=== PATIENT | male | born 1985 | race Caucasian/White ===

== ENCOUNTER 2018-04-12 13:43 | Emergency (ER) | payer OTHER ==
[~2018-04-12] VITALS: Ht 177.8 cm; Wt 84.1 kg
[2018-04-12 13:47] VITALS: BP 141/99
[2018-04-12] MEDS ORDERED: LIDOCAINE 1% MDV 20ML VIAL IM ONE (15:30)
--- NOTE | 2018-04-12 15:32 | REP ---
Left thumb series: Four views. History: Laceration. Findings: Four views of the left thumb demonstrate a flexion deformity at the IP joint of the thumb. No opaque foreign body or fracture is seen. Impression: Flexion deformity at the DIP joint of the thumb. Question extensor tendon injury. No fracture seen. No opaque foreign body noted. Electronically Signed by Timoteo Sanders MD 04/12/2018 06:56 P
[2018-04-12] MEDS ORDERED: cefTRIAXone SOD 1 GM VIAL (J0696) IM ONE (15:45)
[2018-04-12] MEDS ORDERED: LIDOCAINE 1% SDV 5 ML VIAL DILUENT ONE (15:45)
[2018-04-12] MEDS ORDERED: KEFL500C17 PO (15:55)
== END 2018-04-12 16:16 | disposition home or self-care (01) ==
LOC: M ED 13:43
DX: S61.012A Laceration without foreign body of left thumb without damage to nail, initial encounter (principal); W26.0XXA Contact with knife, initial encounter; Y92.018 Other place in single-family (private) house as the place of occurrence of the external cause
CPT/HCPCS: 12031; 73140; 96372; 99284; J0696

== ENCOUNTER 2018-12-13 11:52 | Emergency (ER) | payer OTHER ==
[~2018-12-13 11:52] MED LIST: FOLIC ACID 1 MG TAB PO SCH; KEFL500C17 PO; MULTIVITAMINS/MINERALS THERAP 1 TAB PO SCH
[2018-12-13 12:34] LABS: HEMATOCRIT 47.7 % (42.0-52.0); HEMOGLOBIN 17.6 g/dl (13.5-17.5); MEAN CORPUSCULAR HEMOGLOBIN 31.4 pg (27.0-33.0); MEAN CORPUSCULAR VOLUME 85.2 fl (80.0-96.0); PLATELET COUNT, AUTOMATED 290 10^3/uL (150-450); WHITE BLOOD COUNT 7.9 10^3/uL (4.0-10.0)
[2018-12-13 12:39] LABS: MEAN CORPUSCULAR HGB CONC 36.5 g/dl (32.0-36.5)
[2018-12-13 13:11] LABS: ACETAMINOPHEN LEVEL < 2.0 UG/ML (10.0-30.0); ALBUMIN 4.5 GM/DL (3.2-5.2); ALT/SGPT 108 U/L (12-78); BILIRUBIN,DIRECT 0.3 MG/DL (0.0-0.2); BILIRUBIN,TOTAL 1.5 MG/DL (0.2-1.0); BLOOD UREA NITROGEN 13 MG/DL (7-18); CALCIUM LEVEL 9.3 MG/DL (8.5-10.1); CARBON DIOXIDE LEVEL 24 MEQ/L (21-32); CHLORIDE LEVEL 109 MEQ/L (98-107); CREATININE FOR GFR 1.08 MG/DL (0.70-1.30); ETHYL ALCOHOL (ETHANOL) 0.227 % (0.000-0.010); GLOMERULAR FILTRATION RATE > 60.0 (>60); GLUCOSE, FASTING 97 MG/DL (70-100); POTASSIUM SERUM 4.2 MEQ/L (3.5-5.1); SALICYLATE LEVEL < 1.7 MG/DL (5.0-30.0); SODIUM LEVEL 143 MEQ/L (136-145); THYROID STIMULATING HORMONE 0.757 uIU/ML (0.358-3.740); TOTAL PROTEIN 8.1 GM/DL (6.4-8.2)
[2018-12-13 13:19] LABS: AMPHETAMINES LEVEL URINE NEGATIVE (NEGATIVE); BARBITURATES URINE NEGATIVE (NEGATIVE); BENZODIAZEPINES URINE NEGATIVE (NEGATIVE); CANNABINOIDS URINE NEGATIVE (NEGATIVE); COCAINE METABOLITE URINE NEGATIVE (NEGATIVE); METHADONE URINE NEGATIVE (NEGATIVE); OPIATES URINE NEGATIVE (NEGATIVE); PHENCYCLIDINE URINE NEGATIVE (NEGATIVE)
[2018-12-13] MEDS ORDERED: OXAZEPAM 15 MG CAP PO ONE (19:15)
[2018-12-13] MEDS ORDERED: LORazepam 2 MG TAB PO PRN (19:15)
[2018-12-13] MEDS ORDERED: THIAMINE 100 MG TAB PO SCH (21:00)
[2018-12-13 23:53] VITALS: BP 146/87
--- NOTE | 2018-12-14 05:57 | ECGEPIP ---
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
== END 2018-12-13 23:55 ==
LOC: M ED 11:52 → EDSEX 11:52 → EDBD 11:52 → M ED 23:55
DX: R45.851 Suicidal ideations (principal); F32.9 Major depressive disorder, single episode, unspecified; F10.10 Alcohol abuse, uncomplicated
CPT/HCPCS: 80048; 80076; 80307; 84443; 85027; 93005; 99285; G0480

== ENCOUNTER 2019-03-03 00:12 | Inpatient (IN) | payer OTHER ==
[~2019-03-03] VITALS: Ht 177.8 cm; Wt 78.1 kg
[~2019-03-03 00:12] MED LIST changes: -FOLIC ACID 1 MG TAB PO SCH; -MULTIVITAMINS/MINERALS THERAP 1 TAB PO SCH
[2019-03-03 00:23] LABS: HEMATOCRIT 48.6 % (42.0-52.0); MEAN CORPUSCULAR VOLUME 88.5 fl (80.0-96.0); PLATELET COUNT, AUTOMATED 318 10^3/uL (150-450); RED BLOOD COUNT 5.49 10^6/uL (4.30-6.10); WHITE BLOOD COUNT 11.5 10^3/uL (4.0-10.0)
[2019-03-03 00:57] LABS: AMPHETAMINES LEVEL URINE NEGATIVE (NEGATIVE); BARBITURATES URINE NEGATIVE (NEGATIVE); BENZODIAZEPINES URINE NEGATIVE (NEGATIVE); CANNABINOIDS URINE NEGATIVE (NEGATIVE); COCAINE METABOLITE URINE NEGATIVE (NEGATIVE); METHADONE URINE NEGATIVE (NEGATIVE); OPIATES URINE NEGATIVE (NEGATIVE); PHENCYCLIDINE URINE NEGATIVE (NEGATIVE)
[2019-03-03 01:00] LABS: ACETAMINOPHEN LEVEL < 2.0 UG/ML (10.0-30.0); ALT/SGPT 43 U/L (12-78); BILIRUBIN,DIRECT 0.1 MG/DL (0.0-0.2); BILIRUBIN,TOTAL 0.6 MG/DL (0.2-1.0); BLOOD UREA NITROGEN 10 MG/DL (7-18); CALCIUM LEVEL 8.7 MG/DL (8.5-10.1); CARBON DIOXIDE LEVEL 30 MEQ/L (21-32); CHLORIDE LEVEL 108 MEQ/L (98-107); CREATININE FOR GFR 0.93 MG/DL (0.70-1.30); ETHYL ALCOHOL (ETHANOL) 0.291 % (0.000-0.010); GLOMERULAR FILTRATION RATE > 60.0 (>60); GLUCOSE, FASTING 122 MG/DL (70-100); POTASSIUM SERUM 4.2 MEQ/L (3.5-5.1); SALICYLATE LEVEL < 1.7 MG/DL (5.0-30.0); SODIUM LEVEL 145 MEQ/L (136-145); THYROID STIMULATING HORMONE 0.863 uIU/ML (0.358-3.740); TOTAL PROTEIN 7.9 GM/DL (6.4-8.2)
[2019-03-03] MEDS ORDERED: METAL LOCK LOOP XX ONE (01:48)
[2019-03-03] MEDS ORDERED: traZODone 50 MG TAB PO PRN (12:30)
[2019-03-03] MEDS ORDERED: MOM 30ML SUSPENSION UDC PO PRN (12:30)
[2019-03-03] MEDS ORDERED: MAALOX 30 ML SUSP *UDC PO PRN (12:30)
[2019-03-03] MEDS ORDERED: ACETAMINOPHEN TAB 650MG DOSE (2X325MG) PO PRN (12:30)
[2019-03-03] MEDS ORDERED: cymbalta PO (15:22)
[2019-03-03 16:02] VITALS: BP 149/89
[2019-03-03] MEDS: NICOTINE 21MG/24HR 1 EA TRANSDERMAL TD SCH (17:30)
[2019-03-04 06:24] VITALS: BP 148/92
[2019-03-04] MEDS: NICOTINE 21MG/24HR 1 EA TRANSDERMAL TD SCH (09:00)
--- NOTE | 2019-03-04 12:01 | MHHPEPDOC ---
General Date Of Admission: Mar 03, 2019 Legal Status: 9.39 Chief Complaint "I've been depressed since my moved out with our kids." History of Present Illness HISTORY OF THE PRESENT ILLNESS: Patient is a 33 -year-old , AD, male, with a history of depression and alcohol use d/o who was brought to ED by RENNY'gianna on a 9.41 after he had been found in his bathtub with a bottle of gin and a razor blade, apparently voicing SI. When in the ED pt was intoxicated and after he sobered up in the Ed he stated he was depressed due to marital problems and had been drinking to self medicate which caused him to have SI. Per MP's pt's has moved out of their home with their kids. Psychiatric Review of Systems Depression (2 or more weeks): depressed mood, feelings of worthlesness (shame), difficulty concentrating, suicidal thoughts Ammy (4 or more days of): denies Psychosis: denies PTSD: denies Anxiety: situational anxiety, stressor related anxiety Anxiety/ 6 months or more of: difficulty concentrating, sleep disturbance Past Psychiatric History Previous Psychiatric Diagnosis: Depression, Alcohol use d/o Previous Psychiatric Admissions: [facility] for SI 12/13/18 Suicide Attempts: denies Psychiatric Follow-up: [facility] Psychiatric medications: cymbalta Past Medical History Medical Problems denies Head Injury: No Seizures: No Hospitalizations: Yes Surgeries: Yes (foot surgery) Family Medical/Psychiatric HX Medical Problems noncontributory Psychiatric Disorders: No Addiction: No Suicide Attemps/Completions: No Addiction History alcohol (binge drank night of admission after having been sober since 12/2018, bal 0.291) Social History Childhood: born and raised 2 parent home with siblings, good childhood Abuse/Trauma:denies Current Living Situation: lives alone after moved out with their kids 2wks ago on [facility] Education: high school grad Employment: [employer] Social Support: , family Legal: denies Marital: from , 2 kids Mental Status Examination General Appearance: unkempt, appears stated age, hospital scubs/clothing Build: average Demeanor: average Eye Contact: average Activity: average Behavior: cooperative Speech: clear, spontaneous, reg/rate,rhythm,volume Mood: depressed, anxious Mood "depressed and ashamed" Affect: constricted, congruent, anxious Thought Process: logical/linear, depressed, intact, other (thoughts of being ashamed over past actions, regret) Thought Content (Delusions): none reported, denies SI, HI, AVH Thought Content (Other): none reported, appropriate Thought Content (Aggressive): none reported Perception (Hallucinations): none reported Perception (Other): none reported Cognition (Impairment of): none reported Cognition(Intelligence Est.): average Oriented: Awake, Alert, Oriented times three Insight: fair Judgment: Fair Psychosis: Denies Diagnoses Depression unspecified R/O adjustment d/o with depressed mood r/o substance induced depression secondary alcohol alcohol use d/o A-FIB/CHADSVASC A-FIB History Current/History of A-Fib/PAF?: No Assessment Pt seen and states he's here for SI that first started in December 2018 with admission [facility] 12/13/18 and was started on cymbalta and had been doing well until after Thanksgiving when it came back. States his SI is due to his leaving him as they have been for a while but she just moved out with their kids 2wks ago which he admits hurts. States that his drinking and depression led to their separation and that he doesn't think if he gets better things will improve with them b/c his told him she wouldn't and "she's a person of her word." States he had been sober since December and started drinking 3 days ago when he and his and kids were spending Thanksgiving when he went thru her phone and found out she wasn't saying very nice things about him to her friends and was talking to other men which was hard for him to deal. States drank in binge pattern for 1 night prior to admission. States his showed up at when his beet end supervisor and warrant officer from his section there as his had been talking to pt on the phone and she requested they go and check on him. States he feels ashamed of what he did and has drink. States he does not find cymbalta very beneficial to his mood. Discussed medications with him and agreeable to starting prozac for depression, med risks/benefits discussed. Denies current SI/HI, hallucinations, delusions. Feels safe here. Initial Treatment Plan 1. Patient was admitted on a 9.39 status. 2. Complete history was obtained. 3. With patients permission, family will be contacted and database will be expanded. 4. Patients medication regimen will be reviewed and changed accordingly. 5. Patient will be provided with protected environment. 6. Patient will be treated with individual, group, and milieu therapies. 7. Patient will receive supportive psych-education. 8. Discharge planning will commence immediately. 9. Outpatient follow-up treatment will be strongly recommended. 10. The initial treatment plan will focus initially on: * Depression. * Risk for suicide. 11. d/c cymbalta, start prozac 20mg daily, trazodone 50mg qhs prn insomnia ESTIMATED LENGTH OF STAY: 5-7 DAYS. TIME SPENT COUNSELING AND COORDINATING INITIAL CARE: 60 minutes. Vital Signs Vital Signs Date Time Temp Pulse Resp B/P (MAP) Pulse Ox O2 Delivery O2 Flow Rate FiO2 03/04/19 08:19 Room Air 03/04/19 06:24 98.2 54 14 148/92 (110) 03/03/19 16:45 97 Medications Scheduled [cymbalta] , PO DAILY for depression, (Reported) Allergies Coded Allergies: No Known Allergies (Unverified , 12/13/18) GRACY HOWARD DO Mar 04, 2019 12:01
[2019-03-04] MEDS ORDERED: FLUoxetine 20 MG CAP PO ONE (13:00)
[2019-03-04 17:09] VITALS: BP 149/88
--- NOTE | 2019-03-04 19:31 | CR.PDOC ---
General Date of Consultation: Mar 04, 2019 Consultation REASON FOR CONSULTATION/CHIEF COMPLAINT: REASON FOR CONSULTATION/CHIEF COMPLAINT: Physical examination HISTORY OF PRESENT ILLNESS: Patient is 33 years old male with past medical history of depression, who was admitted in the hospital after he developed suici zaki ideation. He denies fever, chills, nausea, vomiting, shortness of breath, palpitations, diarrhea or dysuria ALLERGIES: Please see below. HOME MEDICATIONS: Please see below. PAST MEDICAL HISTORY: Depression PAST SURGICAL HISTORY: None FAMILY HISTORY: Father: Healthy Mother: Healthy SOCIAL HISTORY: Marital status and/or living arrangements: Single Tobacco use: Denied ETOH: Socially Illicit drug use: Denied IV drug use: Denied PHYSICAL EXAMINATION: VITAL SIGNS: Please see below. GENERAL APPEARANCE: NAD HEENT: PERRLA, EOMI RESPIRATORY: CTA CARDIOVASCULAR: S1-S2 ABDOMEN: Nontender nondistended EXTREMITIES: No swelling NEUROLOGICAL: Cranial nerves from 2-12 intact LABORATORY DATA: Please see below. ASSESSMENT/PLAN: Patient does not have any acute diseases besides of his mental illness. Will follow patient per request Vital Signs/I&O Vital Signs Date Time Temp Pulse Resp B/P (MAP) Pulse Ox O2 Delivery O2 Flow Rate FiO2 03/04/19 17:09 97.7 58 16 149/88 (108) 03/04/19 08:19 Room Air 03/03/19 16:45 97 Allergies Coded Allergies: No Known Allergies (Unverified , 12/13/18) Home Medications Scheduled [cymbalta] , PO DAILY for depression, (Reported) PABLITO PORTER DO Mar 04, 2019 19:31
[2019-03-05 06:07] VITALS: BP 122/70
[2019-03-05] MEDS: NICOTINE 21MG/24HR 1 EA TRANSDERMAL TD SCH (08:16)
[2019-03-05] MEDS: FLUoxetine 20 MG CAP PO SCH (08:17)
--- NOTE | 2019-03-05 09:45 | MHIPNPDOC ---
[facility] Progress Note Progress Note DATE OF SERVICE: 03/05/19 HISTORY: Patient is a 33 -year-old , AD, male, with a history of depression and alcohol use d/o who was brought to ED by RENNY'gianna on a 9.41 after he had been found in his bathtub with a bottle of gin and a razor blade, apparently voicing SI. When in the ED pt was intoxicated and after he sobered up in the Ed he stated he was depressed due to marital problems and had been drinking to self medicate which caused him to have SI. Per MP's pt's has moved out of their home with their kids. Pt seen and states he's here for SI that first started in December 2018 with admission [facility] 12/13/18 and was started on cymbalta and had been doing well until after Thanksgiving when it came back. States his SI is due to his leaving him as they have been for a while but she just moved out with their kids 2wks ago which he admits hurts. States that his drinking and depression led to their separation and that he doesn't think if he gets better things will improve with them b/c his told him she wouldn't and "she's a person of her word." States he had been sober since December and started drinking 3 days ago when he and his and kids were spending Thanksgiving when he went thru her phone and found out she wasn't saying very nice things about him to her friends and was talking to other men which was hard for him to deal. States drank in binge pattern for 1 night prior to admission. States his showed up at when his hardboard supervisor and warrant officer from his section there as his had been talking to pt on the phone and she requested they go and check on him. States he feels ashamed of what he did and has drink. States he does not find cymbalta very beneficial to his mood. Discussed medications with him and agreeable to starting prozac for depression, med risks/benefits discussed. Denies current SI/HI, hallucinations, delusions. Feels safe here. VITAL SIGNS: See below. NEW TEST RESULTS: See below. CURRENT MEDICATIONS: See below. MENTAL STATUS EXAMINATION: General Appearance: unkempt, appears stated age, hospital scrubs/clothing Build: average Demeanor: average Eye Contact: average Activity: average Behavior: cooperative Speech: clear, spontaneous, reg/rate,rhythm,volume Mood: depressed, anxious Mood "doing ok" Affect: less constricted, congruent, anxious Thought Process: logical/linear, less depressed, intact, improving (thoughts of being ashamed over past actions, regret) Thought Content (Delusions): none reported, denies SI, HI, AVH Thought Content (Other): none reported, appropriate Thought Content (Aggressive): none reported Perception (Hallucinations): none reported Perception (Other): none reported Cognition (Impairment of): none reported Cognition(Intelligence Est.): average Oriented: Awake, Alert, Oriented times three Insight: fair Judgment: Fair Psychosis: Denies DIAGNOSES: Depression unspecified R/O adjustment d/o with depressed mood r/o substance induced depression secondary alcohol alcohol use d/o ASSESSMENT:Pt seen and states that his mood is "ok". States he's starting to co me to terms with his guilt and shame over his previous actions, alcohol use. States he slept well last night. Feels he is tolerating his medications and they're beneficial. He is attending groups and finding them helpful, learning coping mechanisms. Per treatment team pt had a 'do not drink alcohol' order with his [employer] and is not in jeopardy of being in trouble with his command as he was found intoxicated with a bottle of gin. Will await [employer] decision regarding 'do not drink alcohol' order. He denies SI/HI, hallucinations, delusions. Pt feels safe here. MANAGEMENT PLAN: continue plan prozac 20mg daily trazodone 50mg qhs prn insomnia TIME SPENT: 30 minutes. Vital Signs Vital Signs Date Time Temp Pulse Resp B/P (MAP) Pulse Ox O2 Delivery O2 Flow Rate FiO2 03/05/19 06:07 98.4 77 16 122/70 (87) Room Air 03/03/19 16:45 97 Current Medications Current Medications Medications (Trade) Dose Ordered Sig/Chary Route PRN Reason Start Time Stop Time Status Last Admin Dose Admin Acetaminophen (Tylenol Tab) 650 mg Q6HP PRN PO HEADACHE or DISCOMFORT 03/03/19 12:30 Al Hydrox/Mg Hydrox/Simethicone (Mylanta) 30 ml Q4HP PRN PO HEARTBURN/INDIGESTION 03/03/19 12:30 Fluoxetine HCl (PROzac) 20 mg DAILY PO 03/05/19 09:00 03/05/19 08:17 Home Med (Med Rec Complete!) ASDIRECTED XX 03/03/19 11:45 03/03/19 11:36 DC Magnesium Hydroxide (Milk Of Magnesia) 30 ml DAILYPRN PRN PO CONSTIPATION 03/03/19 12:30 Nicotine (Nicoderm Cq 21mg) 1 patch DAILY TD 03/03/19 09:00 Trazodone HCl (Desyrel) 50 mg QHSP PRN PO INSOMNIA 03/03/19 12:30 03/04/19 20:54 Allergies Coded Allergies: No Known Allergies (Unverified , 12/13/18) GRACY HOWARD DO Mar 05, 2019 9:15 am
[2019-03-05 18:16] VITALS: BP 163/80
[2019-03-05 18:40] VITALS: BP 130/89
[2019-03-06 06:13] VITALS: BP 140/98
[2019-03-06] MEDS: FLUoxetine 20 MG CAP PO SCH (08:25)
[2019-03-06] MEDS: NICOTINE 21MG/24HR 1 EA TRANSDERMAL TD SCH (08:25)
--- NOTE | 2019-03-06 10:44 | MHIPNPDOC ---
[facility] Progress Note Progress Note DATE OF SERVICE: 03/06/19 HISTORY: Patient is a 33 -year-old , AD, male, with a history of depression and alcohol use d/o who was brought to ED by RENNY'gianna on a 9.41 after he had been found in his bathtub with a bottle of gin and a razor blade, apparently voicing SI. When in the ED pt was intoxicated and after he sobered up in the Ed he stated he was depressed due to marital problems and had been drinking to self medicate which caused him to have SI. Per MP's pt's has moved out of their home with their kids. Pt seen and states he's here for SI that first started in December 2018 with admission [facility] 12/13/18 and was started on cymbalta and had been doing well until after Thanksgiving when it came back. States his SI is due to his leaving him as they have been for a while but she just moved out with their kids 2wks ago which he admits hurts. States that his drinking and depression led to their separation and that he doesn't think if he gets better things will improve with them b/c his told him she wouldn't and "she's a person of her word." States he had been sober since December and started drinking 3 days ago when he and his and kids were spending Thanksgiving when he went thru her phone and found out she wasn't saying very nice things about him to her friends and was talking to other men which was hard for him to deal. States drank in binge pattern for 1 night prior to admission. States his showed up at when his crossing supervisor and warrant officer from his section there as his had been talking to pt on the phone and she requested they go and check on him. States he feels ashamed of what he did and has drink. States he does not find cymbalta very beneficial to his mood. Discussed medications with him and agreeable to starting prozac for depression, med risks/benefits discussed. Denies current SI/HI, hallucinations, delusions. Feels safe here. VITAL SIGNS: See below. NEW TEST RESULTS: See below. CURRENT MEDICATIONS: See below. MENTAL STATUS EXAMINATION: General Appearance: unkempt, appears stated age, own clothing Build: average Demeanor: average Eye Contact: average Activity: average Behavior: cooperative Speech: clear, spontaneous, reg/rate,rhythm,volume Mood: depressed, anxious Mood "alright" Affect: less constricted, congruent, anxious Thought Process: logical/linear, less depressed, intact, improving (thoughts of being ashamed over past actions, regret) Thought Content (Delusions): none reported, denies SI, HI, AVH Thought Content (Other): none reported, appropriate Thought Content (Aggressive): none reported Perception (Hallucinations): none reported Perception (Other): none reported Cognition (Impairment of): none reported Cognition(Intelligence Est.): average Oriented: Awake, Alert, Oriented times three Insight: fair Judgment: Fair Psychosis: Denies DIAGNOSES: Depression unspecified R/O adjustment d/o with depressed mood r/o substance induced depression secondary alcohol alcohol use d/o ASSESSMENT:Pt seen and states that his mood is "ok". States he still struggles with guilt, shame, loneliness, what will happen regarding the . "Nights are bad for me." States he slept "relatively" well last night but had a lot of anxious/worrisome thoughts that made it difficult to fall asleep so he read some. Agrees to starting vistaril 25mg prn anxiety, encouraged to try taking at night to improve anxious/worrisome thoughts that are worse at night. Feels he is tolerating his medications and they're beneficial. He is attending groups and finding them helpful, learning coping mechanisms. Per treatment team pt had a 'do not drink alcohol' order with his [facility] and is not in jeopardy of being in trouble with his command as he was found intoxicated with a bottle of gin. Will await [facility] decision regarding 'do not drink alcohol' order. Pt states he wants to go to [facility] abuse as believes it will "ultimately be the best" for his alcohol use and relationship with his . He denies SI/HI, hallucinations, delusions. Pt feels safe here. MANAGEMENT PLAN: continue plan. vistaril prn anxiety prozac 20mg daily trazodone 50mg qhs prn insomnia vistaril 25mg q6hr prn anxiety TIME SPENT: 30 minutes. Vital Signs Vital Signs Date Time Temp Pulse Resp B/P (MAP) Pulse Ox O2 Delivery O2 Flow Rate FiO2 03/06/19 06:13 98.9 50 18 140/98 (112) 03/05/19 18:40 Room Air 03/03/19 16:45 97 Current Medications Current Medications Medications (Trade) Dose Ordered Sig/Chary Route PRN Reason Start Time Stop Time Status Last Admin Dose Admin Acetaminophen (Tylenol Tab) 650 mg Q6HP PRN PO HEADACHE or DISCOMFORT 03/03/19 12:30 Al Hydrox/Mg Hydrox/Simethicone (Mylanta) 30 ml Q4HP PRN PO HEARTBURN/INDIGESTION 03/03/19 12:30 Fluoxetine HCl (PROzac) 20 mg DAILY PO 03/05/19 09:00 03/06/19 08:25 Home Med (Med Rec Complete!) ASDIRECTED XX 03/03/19 11:45 03/03/19 11:36 DC Magnesium Hydroxide (Milk Of Magnesia) 30 ml DAILYPRN PRN PO CONSTIPATION 03/03/19 12:30 Nicotine (Nicoderm Cq 21mg) 1 patch DAILY TD 03/03/19 09:00 Trazodone HCl (Desyrel) 50 mg QHSP PRN PO INSOMNIA 03/03/19 12:30 03/04/19 20:54 Allergies Coded Allergies: No Known Allergies (Unverified , 12/13/18) GRACY HOWARD DO Mar 06, 2019 10:44 am
[2019-03-06] MEDS: CEPACOL LOZENGE PO PRN ×2 (15:17→19:43)
[2019-03-06 18:00] VITALS: BP 142/82
[2019-03-06] MEDS: MIRTAZAPINE 15 MG TAB PO SCH (20:23)
[2019-03-07 06:03] VITALS: BP 129/75
[2019-03-07] MEDS: NICOTINE 21MG/24HR 1 EA TRANSDERMAL TD SCH (08:24)
[2019-03-07] MEDS: FLUoxetine 20 MG CAP PO SCH (08:24)
--- NOTE | 2019-03-07 10:11 | MHIPNPDOC ---
[facility] Progress Note Progress Note DATE OF SERVICE: 03/07/19 HISTORY: Patient is a 33 -year-old , AD, male, with a history of depression and alcohol use d/o who was brought to ED by RENNY'gianna on a 9.41 after he had been found in his bathtub with a bottle of gin and a razor blade, apparently voicing SI. When in the ED pt was intoxicated and after he sobered up in the Ed he stated he was depressed due to marital problems and had been drinking to self medicate which caused him to have SI. Per MP's pt's has moved out of their home with their kids. Pt seen and states he's here for SI that first started in December 2018 with admission [facility] 12/13/18 and was started on cymbalta and had been doing well until after Thanksgiving when it came back. States his SI is due to his leaving him as they have been for a while but she just moved out with their kids 2wks ago which he admits hurts. States that his drinking and depression led to their separation and that he doesn't think if he gets better things will improve with them b/c his told him she wouldn't and "she's a person of her word." States he had been sober since December and started drinking 3 days ago when he and his and kids were spending Thanksgiving when he went thru her phone and found out she wasn't saying very nice things about him to her friends and was talking to other men which was hard for him to deal. States drank in binge pattern for 1 night prior to admission. States his showed up at when his social work supervisor and warrant officer from his section there as his had been talking to pt on the phone and she requested they go and check on him. States he feels ashamed of what he did and has drink. States he does not find cymbalta very beneficial to his mood. Discussed medications with him and agreeable to starting prozac for depression, med risks/benefits discussed. Denies current SI/HI, hallucinations, delusions. Feels safe here. VITAL SIGNS: See below. NEW TEST RESULTS: See below. CURRENT MEDICATIONS: See below. MENTAL STATUS EXAMINATION: General Appearance: unkempt, appears stated age, own clothing Build: average Demeanor: average Eye Contact: average Activity: average Behavior: cooperative Speech: clear, spontaneous, reg/rate,rhythm,volume Mood: depressed, anxious Mood "ok" Affect: less constricted, congruent, anxious, appears slightly ambivalent about going to rehab but will not admit he is Thought Process: logical/linear, less depressed, intact, improving (thoughts of being ashamed over past actions, regret) Thought Content (Delusions): none reported, denies SI, HI, AVH Thought Content (Other): none reported, appropriate Thought Content (Aggressive): none reported Perception (Hallucinations): none reported Perception (Other): none reported Cognition (Impairment of): none reported Cognition(Intelligence Est.): average Oriented: Awake, Alert, Oriented times three Insight: fair Judgment: Fair Psychosis: Denies DIAGNOSES: Depression unspecified R/O adjustment d/o with depressed mood r/o substance induced depression secondary alcohol alcohol use d/o ASSESSMENT:Per d/c workforce planner, pt accepted to [facility] inpatient substance abuse treatment in [place] with bed date most likely next week. Pt seen and states that his mood is "ok". Pt seen and asked how he feels about going to inpatient rehab and flatly stated good, states his main reason for going is himself first and then his family. Comes across as ambivalent about going to rehab and asked about that and denied. He does not appear very motivated or excited to be going though but more hesitant. States he still struggles with guilt, shame, loneliness, what will happen regarding the . States he slept well last night. Vistaril 25mg prn anxiety has been benficial for his anxiety especially at night. Feels he is tolerating his medications and they're beneficial. He is attending groups and finding them helpful, learning coping mechanisms. Per treatment team pt had a 'do not drink alcohol' order with his [facility] and is not in jeopardy of being in trouble with his command as he was found intoxicated with a bottle of gin. Will await [facility] decision regarding 'do not drink alcohol' order. He denies SI/HI, hallucinations, delusions. Pt feels safe here. MANAGEMENT PLAN: d/c to [facility] inpatient substance abuse treatment in [place] with bed date most likely next week prozac 20mg daily trazodone 50mg qhs prn insomnia vistaril 25mg q6hr prn anxiety TIME SPENT: 30 minutes. Vital Signs Vital Signs Date Time Temp Pulse Resp B/P (MAP) Pulse Ox O2 Delivery O2 Flow Rate FiO2 03/07/19 06:03 97.6 50 18 129/75 (93) 03/05/19 18:40 Room Air 03/03/19 16:45 97 Current Medications Current Medications Medications (Trade) Dose Ordered Sig/Chary Route PRN Reason Start Time Stop Time Status Last Admin Dose Admin Acetaminophen (Tylenol Tab) 650 mg Q6HP PRN PO HEADACHE or DISCOMFORT 03/03/19 12:30 Al Hydrox/Mg Hydrox/Simethicone (Mylanta) 30 ml Q4HP PRN PO HEARTBURN/INDIGESTION 03/03/19 12:30 Cetylpyridinium Chloride (Cepacol) 1 oziel Q2HP PRN PO SORE THROAT 03/06/19 14:30 03/06/19 19:43 Fluoxetine HCl (PROzac) 20 mg DAILY PO 03/05/19 09:00 03/07/19 08:24 Home Med (Med Rec Complete!) ASDIRECTED XX 03/03/19 11:45 03/03/19 11:36 DC Magnesium Hydroxide (Milk Of Magnesia) 30 ml DAILYPRN PRN PO CONSTIPATION 03/03/19 12:30 Mirtazapine (Remeron) 15 mg QHS PO 03/06/19 21:00 03/06/19 20:23 Nicotine (Nicoderm Cq 21mg) 1 patch DAILY TD 03/03/19 09:00 Trazodone HCl (Desyrel) 50 mg QHSP PRN PO INSOMNIA 03/03/19 12:30 03/06/19 19:48 DC 03/04/19 20:54 Allergies Coded Allergies: No Known Allergies (Unverified , 12/13/18) GRACY HOWARD DO Mar 07, 2019 9:51 am
[2019-03-07 16:02] VITALS: BP 146/90
[2019-03-07] MEDS: MIRTAZAPINE 15 MG TAB PO SCH (20:45)
[2019-03-08 06:53] VITALS: BP 156/88
[2019-03-08] MEDS: NICOTINE 21MG/24HR 1 EA TRANSDERMAL TD SCH (08:42)
[2019-03-08] MEDS: FLUoxetine 20 MG CAP PO SCH (08:42)
[2019-03-08 15:34] VITALS: BP 140/82
[2019-03-08] MEDS: MIRTAZAPINE 15 MG TAB PO SCH (20:56)
[2019-03-09 06:08] VITALS: BP 128/78
[2019-03-09] MEDS: NICOTINE 21MG/24HR 1 EA TRANSDERMAL TD SCH (09:00)
[2019-03-09] MEDS: FLUoxetine 20 MG CAP PO SCH (09:03)
[2019-03-09 15:37] VITALS: BP 138/82
[2019-03-09] MEDS: MIRTAZAPINE 15 MG TAB PO SCH (20:12)
[2019-03-10 06:46] VITALS: BP 134/77
[2019-03-10] MEDS: FLUoxetine 20 MG CAP PO SCH (08:53)
[2019-03-10] MEDS: NICOTINE 21MG/24HR 1 EA TRANSDERMAL TD SCH (08:54)
[2019-03-10 16:12] VITALS: BP 150/92
[2019-03-10] MEDS: MIRTAZAPINE 15 MG TAB PO SCH (20:39)
[2019-03-11 06:31] VITALS: BP 144/80
[2019-03-11] MEDS: NICOTINE 21MG/24HR 1 EA TRANSDERMAL TD SCH (08:11)
[2019-03-11] MEDS: FLUoxetine 20 MG CAP PO SCH (08:12)
--- NOTE | 2019-03-11 08:52 | MHDSPDOC ---
[facility] Discharge Summary Discharge Summary DATE OF ADMISSION: Mar 03, 2019 at 12:28 pm DATE OF DISCHARGE: Mar 11, 2019 DISCHARGE DIAGNOSES: Depression unspecified R/O adjustment d/o with depressed mood r/o substance induced depression secondary alcohol alcohol use d/o REASON FOR ADMISSION: Patient is a 33 -year-old , AD, male, with a history of depression and alcohol use d/o who was brought to ED by [facility]NY[facility] on a 9.41 after he had been found in his bathtub with a bottle of gin and a razor blade, apparently voicing SI. When in the ED pt was intoxicated and after he sobered up in the Ed he stated he was depressed due to marital problems and had been drinking to self medicate which caused him to have SI. Per MP's pt's has moved out of their home with their kids. Pt seen and states he's here for SI that first started in December 2018 with admission [facility] 12/13/18 and was started on cymbalta and had been doing well until after Thanksgiving when it came back. States his SI is due to his leaving him as they have been for a while but she just moved out with their kids 2wks ago which he admits hurts. States that his drinking and depression led to their separation and that he doesn't think if he gets better things will improve with them b/c his told him she wouldn't and "she's a person of her word." States he had been sober since December and started drinking 3 days ago when he and his and kids were spending Thanksgiving when he went thru her phone and found out she wasn't saying very nice things about him to her friends and was talking to other men which was hard for him to deal. States drank in binge pattern for 1 night prior to admission. States his showed up at when his supervisor color making and warrant officer from his section there as his had been talking to pt on the phone and she requested they go and check on him. States he feels ashamed of what he did and has drink. States he does not find cymbalta very beneficial to his mood. Discussed medications with him and agreeable to starting prozac for depression, med risks/benefits discussed. Denies current SI/HI, hallucinations, delusions. Feels safe here. CONSULTANTS INVOLVED: none TREATMENT AND PROGRESS ON THE UNIT : Pt was admitted to [facility], seen for psychiatric assessment and started on prozac 20mg daily for mood. He was provided vistaril 25mg q6hr prn anxiety and trazodone 500mg qhs prn insomnia. Pt found his medications beneficial and tolerated them well. he denied alcohol withdrawal symptoms thru out his stay. He attended groups daily during his stay that he found helpful. His symptoms improved with treatment. On day of discharge he denied depression, anxiety, insomnia, SI/HI, hallucinations, delusions. He was discharged with his [facility] to [facility] inpatient substance abuse treatment in [place]. He felt safe for discharge. DISCHARGE ASSESSMENT: Pt seen and states that his mood is "good" and that he's looking forward to going to substance abuse treatment in [place]. States his main reason for going is himself first and then his family. States he slept well last night. Feels he is tolerating his medications and they're beneficial. He is attending groups and finding them helpful, learning coping mechanisms. He denies depression, anxiety, insomnia, SI/HI, hallucinations, delusions. Pt feels safe to d/c with his Bandar. MENTAL STATUS EXAMINATION ON DISCHARGE: General Appearance: unkempt, appears stated age, own clothing Build: average Demeanor: average Eye Contact: average Activity: average Behavior: cooperative Speech: clear, spontaneous, reg/rate,rhythm,volume Mood: euthymic, full range Mood "good" Affect: congruent, appropriate to mood Thought Process: logical/linear, intact Thought Content (Delusions): none reported, denies SI, HI, AVH Thought Content (Other): none reported, appropriate Thought Content (Aggressive): none reported Perception (Hallucinations): none reported Perception (Other): none reported Cognition (Impairment of): none reported Cognition(Intelligence Est.): average Oriented: Awake, Alert, Oriented times three Insight: fair Judgment: Fair Psychosis: Denies MEDICATIONS ON DISCHARGE: prozac 20mg daily trazodone 50mg qhs prn insomnia vistaril 25mg q6hr prn anxiety PLAN/FOLLOWUP ARRANGEMENTS: D/c with [facility] to [facility] inpatient substance abuse treatment in [place] The amount of time spent in the coordination of care for this patient was approximately 30 minutes. Patient is a 33 -year-old , AD, male, with a history of depression and alcohol use d/o who was brought to ED by [facility]ENNY's on a 9.41 after he had been found in his bathtub with a bottle of gin and a razor blade, apparently voicing SI. When in the ED pt was intoxicated and after he sobered up in the Ed he stated he was depressed due to marital problems and had been drinking to self medicate which caused him to have SI. Per MP's pt's has moved out of their home with their kids. Pt seen and states he's here for SI that first started in December 2018 with admission [facility] 12/13/18 and was started on cymbalta and had been doing well until after Thanksgi when it came back. States his SI is due to his leaving him as they have been for a while but she just moved out with their kids 2wks ago which he admits hurts. States that his drinking and depression led to their separation and that he doesn't think if he gets better things will improve with them b/c his told him she wouldn't and "she's a person of her word." States he had been sober since December and started drinking 3 days ago when he and his and kids were spending Thanksgiving when he went thru her phone and found out she wasn't saying very nice things about him to her friends and was talking to other men which was hard for him to deal. States drank in binge pattern for 1 night prior to admission. States his showed up at when his supervisor color making and warrant officer from his section there as his had been talking to pt on the phone and she requested they go and check on him. States he feels ashamed of what he did and has drink. States he does not find cymbalta very beneficial to his mood. Discussed medications with him and agreeable to starting prozac for depression, med risks/benefits discussed. Denies current SI/HI, hallucinations, delusions. Feels safe here. VITAL SIGNS: See below. NEW TEST RESULTS: See below. CURRENT MEDICATIONS: See below. MENTAL STATUS EXAMINATION: General Appearance: unkempt, appears stated age, own clothing Build: average Demeanor: average Eye Contact: average Activity: average Behavior: cooperative Speech: clear, spontaneous, reg/rate,rhythm,volume Mood: depressed, anxious Mood "ok" Affect: less constricted, congruent, anxious, appears slightly ambivalent about going to rehab but will not admit he is Thought Process: logical/linear, less depressed, intact, improving (thoughts of being ashamed over past actions, regret) Thought Content (Delusions): none reported, denies SI, HI, AVH Thought Content (Other): none reported, appropriate Thought Content (Aggressive): none reported Perception (Hallucinations): none reported Perception (Other): none reported Cognition (Impairment of): none reported Cognition(Intelligence Est.): average Oriented: Awake, Alert, Oriented times three Insight: fair Judgment: Fair Psychosis: Denies DIAGNOSES: Depression unspecified R/O adjustment d/o with depressed mood r/o substance induced depression secondary alcohol alcohol use d/o ASSESSMENT:Per d/c principal planner, pt accepted to [facility] inpatient substance abuse treatment in [place] with bed date most likely next week. Pt seen and states that his mood is "ok". Pt seen and asked how he feels about going to inpatient rehab and flatly stated good, states his main reason for going is himself first and then his family. Comes across as ambivalent about going to rehab and asked about that and denied. He does not appear very motivated or excited to be going though but more hesitant. States he still struggles with guilt, shame, loneliness, what will happen regarding the . States he slept well last night. Vistaril 25mg prn anxiety has been benficial for his anxiety especially at night. Feels he is tolerating his medications and they're beneficial. He is attending groups and finding them helpful, learning coping mechanisms. Per treatment team pt had a 'do not drink alcohol' order with his [facility] and is not in jeopardy of being in trouble with his command as he was found intoxicated with a bottle of gin. Will await [facility] decision regarding 'do not drink alcohol' order. He denies SI/HI, hallucinations, delusions. Pt feels safe here. MANAGEMENT PLAN: d/c to [facility] inpatient substance abuse treatment in [place] with bed date most likely next week prozac 20mg daily trazodone 50mg qhs prn insomnia vistaril 25mg q6hr prn anxiety TIME SPENT: 30 minutes. Vital Signs/I&Os Vital Signs Date Time Temp Pulse Resp B/P (MAP) Pulse Ox O2 Delivery O2 Flow Rate FiO2 03/11/19 06:31 97.5 58 18 144/80 (101) 03/10/19 06:46 Room Air Medications No Active Prescriptions or Reported Meds Allergies Coded Allergies: No Known Allergies (Unverified , 12/13/18) GRACY HOWARD DO Mar 11, 2019 8:52 am
== END 2019-03-11 10:30 | disposition short-term general hospital (02) | DRG 881 ==
LOC: M ED 00:12 → M ED INP 12:28 → M PSY 17:00
PROVIDERS: ADMIT Psychiatry & Neurology Psychiatry; ATTEND Psychiatry & Neurology Psychiatry
DX: F32.9 Major depressive disorder, single episode, unspecified (principal); F10.24 Alcohol dependence with alcohol-induced mood disorder; F43.21 Adjustment disorder with depressed mood; Z63.5 Disruption of family by separation and divorce; F10.220 Alcohol dependence with intoxication, uncomplicated; Z79.899 Other long term (current) drug therapy

== ENCOUNTER 2019-06-09 09:00 | Emergency (ER) | payer OTHER ==
[~2019-06-09] VITALS: Ht 177.8 cm; Wt 81.8 kg
[~2019-06-09 09:00] MED LIST changes: +FOLIC ACID 1 MG TAB PO SCH; +MULTIVITAMINS/MINERALS THERAP 1 TAB PO SCH; +cymbalta PO
[2019-06-09] MEDS ORDERED: PROZ40CA PO (09:24)
[2019-06-09 10:32] LABS: HEMATOCRIT 52.2 % (42.0-52.0); HEMOGLOBIN 18.4 g/dl (13.5-17.5); MEAN CORPUSCULAR HEMOGLOBIN 31.4 pg (27.0-33.0); MEAN CORPUSCULAR HGB CONC 35.2 g/dl (32.0-36.5); MEAN CORPUSCULAR VOLUME 89.1 fl (80.0-96.0); PLATELET COUNT, AUTOMATED 319 10^3/uL (150-450); RED BLOOD COUNT 5.86 10^6/uL (4.30-6.10); WHITE BLOOD COUNT 6.6 10^3/uL (4.0-10.0)
[2019-06-09 10:55] LABS: ALBUMIN 4.4 GM/DL (3.2-5.2); ALT/SGPT 45 U/L (12-78); BILIRUBIN,DIRECT 0.2 MG/DL (0.0-0.2); BILIRUBIN,TOTAL 0.8 MG/DL (0.2-1.0); BLOOD UREA NITROGEN 11 MG/DL (7-18); CALCIUM LEVEL 8.8 MG/DL (8.5-10.1); CARBON DIOXIDE LEVEL 29 MEQ/L (21-32); CHLORIDE LEVEL 104 MEQ/L (98-107); CREATININE FOR GFR 1.02 MG/DL (0.70-1.30); GLOMERULAR FILTRATION RATE > 60.0 (>60); GLUCOSE, FASTING 101 MG/DL (70-100); POTASSIUM SERUM 4.5 MEQ/L (3.5-5.1); SALICYLATE LEVEL < 1.7 MG/DL (5.0-30.0); SODIUM LEVEL 142 MEQ/L (136-145); THYROID STIMULATING HORMONE 0.243 uIU/ML (0.358-3.740); TOTAL PROTEIN 8.2 GM/DL (6.4-8.2)
[2019-06-09 10:56] LABS: ACETAMINOPHEN LEVEL < 2.0 UG/ML (10.0-30.0)
[2019-06-09] MEDS ORDERED: LORazepam 2 MG TAB PO PRN (11:30)
[2019-06-09] MEDS ORDERED: THIAMINE 100 MG TAB PO SCH (12:00)
[2019-06-09 15:17] LABS: AMPHETAMINES LEVEL URINE NEGATIVE (NEGATIVE); BARBITURATES URINE NEGATIVE (NEGATIVE); BENZODIAZEPINES URINE NEGATIVE (NEGATIVE); CANNABINOIDS URINE NEGATIVE (NEGATIVE); COCAINE METABOLITE URINE NEGATIVE (NEGATIVE); METHADONE URINE NEGATIVE (NEGATIVE); OPIATES URINE NEGATIVE (NEGATIVE); PHENCYCLIDINE URINE NEGATIVE (NEGATIVE)
[2019-06-09 18:25] VITALS: BP 140/86
== END 2019-06-09 18:58 | disposition home or self-care (01) ==
LOC: M ED 09:00
DX: F10.120 Alcohol abuse with intoxication, uncomplicated (principal); Z72.0 Tobacco use; Z79.899 Other long term (current) drug therapy
CPT/HCPCS: 36415; 80048; 80076; 80307; 84443; 85027; 99284; G0480

== ENCOUNTER 2019-09-02 15:08 | Emergency (ER) | payer OTHER ==
[~2019-09-02] VITALS: Ht 177.8 cm; Wt 81.8 kg
[~2019-09-02 15:08] MED LIST changes: -FOLIC ACID 1 MG TAB PO SCH; -MULTIVITAMINS/MINERALS THERAP 1 TAB PO SCH; +PROZ40CA PO
[2019-09-02 15:49] LABS: HEMATOCRIT 47.1 % (42.0-52.0); HEMOGLOBIN 16.9 g/dl (13.5-17.5); MEAN CORPUSCULAR HEMOGLOBIN 32.1 pg (27.0-33.0); MEAN CORPUSCULAR HGB CONC 35.9 g/dl (32.0-36.5); MEAN CORPUSCULAR VOLUME 89.4 fl (80.0-96.0); PLATELET COUNT, AUTOMATED 234 10^3/uL (150-450); RED BLOOD COUNT 5.27 10^6/uL (4.30-6.10); WHITE BLOOD COUNT 6.7 10^3/uL (4.0-10.0)
[2019-09-02] MEDS ORDERED: LIDOCAINE 2% W/EPINEPHRINE 20ML VIAL **PRES FREE INJ ONE (16:00)
[2019-09-02 16:16] LABS: ACETAMINOPHEN LEVEL < 2.0 UG/ML (10.0-30.0); ALBUMIN 4.1 GM/DL (3.2-5.2); ALT/SGPT 165 U/L (12-78); BILIRUBIN,DIRECT 0.2 MG/DL (0.0-0.2); BILIRUBIN,TOTAL 0.8 MG/DL (0.2-1.0); BLOOD UREA NITROGEN 11 MG/DL (7-18); CALCIUM LEVEL 8.7 MG/DL (8.5-10.1); CARBON DIOXIDE LEVEL 21 MEQ/L (21-32); CHLORIDE LEVEL 109 MEQ/L (98-107); CREATININE FOR GFR 1.01 MG/DL (0.70-1.30); ETHYL ALCOHOL (ETHANOL) 0.256 % (0.000-0.010); GLOMERULAR FILTRATION RATE > 60.0 (>60); GLUCOSE, FASTING 132 MG/DL (70-100); POTASSIUM SERUM 3.9 MEQ/L (3.5-5.1); SALICYLATE LEVEL < 1.7 MG/DL (5.0-30.0); SODIUM LEVEL 142 MEQ/L (136-145); TOTAL PROTEIN 7.9 GM/DL (6.4-8.2)
[2019-09-02] MEDS ORDERED: DERMABOND TOPICAL SKIN ADHESIVE TOP ONE (17:30)
[2019-09-02 21:31] LABS: AMPHETAMINES LEVEL URINE NEGATIVE (NEGATIVE); BARBITURATES URINE NEGATIVE (NEGATIVE); BENZODIAZEPINES URINE NEGATIVE (NEGATIVE); CANNABINOIDS URINE NEGATIVE (NEGATIVE); COCAINE METABOLITE URINE NEGATIVE (NEGATIVE); METHADONE URINE NEGATIVE (NEGATIVE); OPIATES URINE NEGATIVE (NEGATIVE); PHENCYCLIDINE URINE NEGATIVE (NEGATIVE)
[2019-09-03] MEDS ORDERED: ACETAMINOPHEN 325 MG TAB PO ONE (00:15)
[2019-09-03 03:54] VITALS: BP 138/74
--- NOTE | 2019-09-03 08:43 | ECGEPIP ---
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
[2020-02-08] MEDS ORDERED: FLUO60TA PO (01:45)
[2020-02-08] MEDS ORDERED: HYDR1TAB33 PO (01:45)
[2020-02-08] MEDS ORDERED: TOPI100T9 PO (01:45)
== END 2019-09-03 04:02 ==
LOC: M ED 15:08 → EDBD 15:08 → M ED 09-03 04:02
DX: S61.512A Laceration without foreign body of left wrist, initial encounter (principal); F32.89 Other specified depressive episodes; X78.1XXA Intentional self-harm by knife, initial encounter; Y92.9 Unspecified place or not applicable; Y93.9 Activity, unspecified; Y99.9 Unspecified external cause status; Z79.899 Other long term (current) drug therapy
CPT/HCPCS: 12006; 36415; 80048; 80076; 80307; 84443; 85027; 93005; 99285; G0480

== ENCOUNTER 2019-12-29 07:21 | Emergency (ER) | payer OTHER ==
[~2019-12-29] VITALS: Ht 177.8 cm; Wt 72.7 kg
[2019-12-29] MEDS ORDERED: PROZ40CA PO (07:41)
[2019-12-29] MEDS ORDERED: LORazepam 2 MG TAB PO PRN (07:45)
[2019-12-29] MEDS ORDERED: NS 1,000 ML IV ONE (07:45)
[2019-12-29] MEDS ORDERED: OXAZEPAM 15 MG CAP PO ONE (07:45)
[2019-12-29 08:11] LABS: HEMATOCRIT 45.1 % (42.0-52.0); HEMOGLOBIN 16.4 g/dl (13.5-17.5); MEAN CORPUSCULAR HEMOGLOBIN 30.3 pg (27.0-33.0); MEAN CORPUSCULAR HGB CONC 36.4 g/dl (32.0-36.5); MEAN CORPUSCULAR VOLUME 83.4 fl (80.0-96.0); PLATELET COUNT, AUTOMATED 295 10^3/uL (150-450); RED BLOOD COUNT 5.41 10^6/uL (4.30-6.10); WHITE BLOOD COUNT 8.4 10^3/uL (4.0-10.0)
[2019-12-29] MEDS ORDERED: THIAMINE 100 MG TAB PO SCH (09:00)
[2019-12-29] MEDS ORDERED: FOLIC ACID 1 MG TAB PO SCH (09:00)
[2019-12-29] MEDS ORDERED: MULTIVITAMINS/MINERALS THERAP 1 TAB PO SCH (09:00)
[2019-12-29 09:15] LABS: ACETAMINOPHEN LEVEL < 2.0 UG/ML (10.0-30.0); ALBUMIN 4.2 GM/DL (3.2-5.2); ALT/SGPT 60 U/L (12-78); BILIRUBIN,DIRECT 0.4 MG/DL (0.0-0.2); BILIRUBIN,TOTAL 2.2 MG/DL (0.2-1.0); BLOOD UREA NITROGEN 13 MG/DL (7-18); CALCIUM LEVEL 9.4 MG/DL (8.5-10.1); CARBON DIOXIDE LEVEL 15 MEQ/L (21-32); CHLORIDE LEVEL 100 MEQ/L (98-107); CREATININE FOR GFR 1.24 MG/DL (0.70-1.30); GLOMERULAR FILTRATION RATE > 60.0 (>60); GLUCOSE, FASTING 133 MG/DL (70-100); POTASSIUM SERUM 3.8 MEQ/L (3.5-5.1); SALICYLATE LEVEL < 1.7 MG/DL (5.0-30.0); SODIUM LEVEL 137 MEQ/L (136-145); TOTAL PROTEIN 8.2 GM/DL (6.4-8.2)
[2019-12-29 09:16] LABS: AMPHETAMINES LEVEL URINE NEGATIVE (NEGATIVE); BARBITURATES URINE NEGATIVE (NEGATIVE); BENZODIAZEPINES URINE NEGATIVE (NEGATIVE); CANNABINOIDS URINE NEGATIVE (NEGATIVE); COCAINE METABOLITE URINE NEGATIVE (NEGATIVE); METHADONE URINE NEGATIVE (NEGATIVE); OPIATES URINE NEGATIVE (NEGATIVE); PHENCYCLIDINE URINE NEGATIVE (NEGATIVE)
[2019-12-29 11:45] VITALS: BP 152/79
== END 2019-12-29 12:02 | disposition home or self-care (01) ==
LOC: EDBD 07:21 → M ED 07:21
DX: F41.9 Anxiety disorder, unspecified (principal); F10.129 Alcohol abuse with intoxication, unspecified; F33.9 Major depressive disorder, recurrent, unspecified; Z79.899 Other long term (current) drug therapy
CPT/HCPCS: 36415; 80048; 80076; 80307; 84443; 85027; 99285; G0480

== ENCOUNTER 2020-01-21 17:38 | Emergency (ER) | payer OTHER ==
[~2020-01-21] VITALS: Ht 177.8 cm; Wt 72.7 kg
[2020-01-21] MEDS ORDERED: HYDR50CA2 PO (17:55)
[2020-01-21] MEDS ORDERED: TOPA100T12 PO (17:55)
[2020-01-21 18:27] LABS: HEMATOCRIT 48.5 % (42.0-52.0); HEMOGLOBIN 17.3 g/dl (13.5-17.5); MEAN CORPUSCULAR HEMOGLOBIN 31.1 pg (27.0-33.0); MEAN CORPUSCULAR HGB CONC 35.7 g/dl (32.0-36.5); MEAN CORPUSCULAR VOLUME 87.2 fl (80.0-96.0); PLATELET COUNT, AUTOMATED 279 10^3/uL (150-450); RED BLOOD COUNT 5.56 10^6/uL (4.30-6.10); WHITE BLOOD COUNT 10.7 10^3/uL (4.0-10.0)
[2020-01-21 18:55] LABS: ACETAMINOPHEN LEVEL < 2.0 UG/ML (10.0-30.0); ALBUMIN 4.1 GM/DL (3.2-5.2); ALT/SGPT 50 U/L (12-78); BILIRUBIN,DIRECT 0.4 MG/DL (0.0-0.2); BILIRUBIN,TOTAL 1.4 MG/DL (0.2-1.0); BLOOD UREA NITROGEN 10 MG/DL (7-18); CALCIUM LEVEL 8.5 MG/DL (8.5-10.1); CARBON DIOXIDE LEVEL 24 MEQ/L (21-32); CHLORIDE LEVEL 107 MEQ/L (98-107); CREATININE FOR GFR 0.94 MG/DL (0.70-1.30); ETHYL ALCOHOL (ETHANOL) 0.229 % (0.000-0.010); GLOMERULAR FILTRATION RATE > 60.0 (>60); GLUCOSE, FASTING 73 MG/DL (70-100); SALICYLATE LEVEL < 1.7 MG/DL (5.0-30.0); SODIUM LEVEL 144 MEQ/L (136-145); THYROID STIMULATING HORMONE 0.226 uIU/ML (0.358-3.740); TOTAL PROTEIN 7.7 GM/DL (6.4-8.2)
[2020-01-21 19:36] LABS: AMPHETAMINES LEVEL URINE NEGATIVE (NEGATIVE); BARBITURATES URINE NEGATIVE (NEGATIVE); BENZODIAZEPINES URINE NEGATIVE (NEGATIVE); CANNABINOIDS URINE NEGATIVE (NEGATIVE); COCAINE METABOLITE URINE NEGATIVE (NEGATIVE); METHADONE URINE NEGATIVE (NEGATIVE); OPIATES URINE NEGATIVE (NEGATIVE); PHENCYCLIDINE URINE NEGATIVE (NEGATIVE)
[2020-01-22] MEDS ORDERED: TOPI100T9 PO (03:55)
[2020-01-22] MEDS ORDERED: EQL50TAB2 PO (03:55)
[2020-01-22] MEDS ORDERED: FLUO20CA20 PO (03:55)
[2020-01-22] MEDS ORDERED: FLUO40CA PO (03:55)
[2020-01-22] MEDS ORDERED: VIST50CA PO (03:55)
[2020-01-22 09:20] VITALS: BP 141/69
== END 2020-01-22 09:22 | disposition home or self-care (01) ==
LOC: M ED 17:38
DX: F32.9 Major depressive disorder, single episode, unspecified (principal); F10.120 Alcohol abuse with intoxication, uncomplicated; F17.200 Nicotine dependence, unspecified, uncomplicated; Z79.899 Other long term (current) drug therapy
CPT/HCPCS: 36415; 80048; 80076; 80307; 84443; 85027; 99284; G0480